=== PATIENT | male | born 1965 | race Two or more races ===

== ENCOUNTER 2019-08-31 02:55 | Emergency (ER) | payer OTHER ==
[~2019-08-31] VITALS: Ht 182.9 cm; Wt 79.4 kg
[2019-08-31] MEDS ORDERED: ORPHENADRINE C100 MG PO (04:43)
[2019-08-31] MEDS ORDERED: KETO10TA2 PO (04:43)
== END 2019-08-31 05:18 | disposition home or self-care (01) ==
LOC: ER 02:55 → EDSEX 02:57 → ER 05:18
DX: M25.512 Pain in left shoulder (principal)

== ENCOUNTER 2019-11-11 17:21 | Emergency (ER) | payer OTHER | END 2019-11-11 19:36 | disposition home or self-care (01) | LOC: ER 17:21 | DX: S81.821A Laceration with foreign body, right lower leg, initial encounter (principal); T79.4XXA Traumatic shock, initial encounter; V23.4XXA Motorcycle driver injured in collision with car, pick-up truck or van in traffic accident, initial encounter; Y93.89 Activity, other specified; Y92.413 State road as the place of occurrence of the external cause; Y99.8 Other external cause status ==

== ENCOUNTER 2019-11-18 09:51 | Emergency (ER) | payer OTHER ==
[~2019-11-18] VITALS: Ht 180.3 cm; Wt 81.6 kg
[~2019-11-18 09:51] MED LIST: KETO10TA2 PO; ORPHENADRINE C100 MG PO
== END 2019-11-18 14:41 | disposition home or self-care (01) ==
LOC: ER 09:51
DX: Z48.02 Encounter for removal of sutures (principal); Z48.00 Encounter for change or removal of nonsurgical wound dressing

== ENCOUNTER 2019-11-20 09:47 | Emergency (ER) | payer OTHER ==
[~2019-11-20] VITALS: Ht 180.3 cm; Wt 81.6 kg
[2019-11-20] MEDS ORDERED: KETO10TA2 PO (10:21)
[2019-11-20] MEDS ORDERED: AMOX1TAB5 PO (10:21)
[2019-11-20] MEDS ORDERED: HIBICLENS118 ML TOP (10:21)
[2019-11-20] MEDS ORDERED: ACETAMINOPHEN500 M1 PO (10:27)
== END 2019-11-20 10:43 | disposition home or self-care (01) ==
LOC: ER 09:47
DX: L03.115 Cellulitis of right lower limb (principal); S81.02 Laceration with foreign body of knee; V23.4XXS Motorcycle driver injured in collision with car, pick-up truck or van in traffic accident, sequela

== ENCOUNTER 2020-03-09 08:10 | Emergency (ER) | payer OTHER ==
[~2020-03-09] VITALS: Ht 180.3 cm; Wt 81.6 kg
[~2020-03-09 08:10] MED LIST changes: +ACETAMINOPHEN500 M1 PO; +AMOX1TAB5 PO; +HIBICLENS118 ML TOP
== END 2020-03-09 10:11 | disposition home or self-care (01) ==
LOC: ER 08:10
DX: H01.001 Unspecified blepharitis right upper eyelid (principal)

== ENCOUNTER 2021-05-15 15:58 | Emergency (ER) | payer OTHER ==
[~2021-05-15] VITALS: Ht 180.3 cm; Wt 81.6 kg
== END 2021-05-15 17:45 | disposition home or self-care (01) ==
LOC: ER 15:58
DX: S51.821A Laceration with foreign body of right forearm, initial encounter (principal); W60.XXXA Contact with nonvenomous plant thorns and spines and sharp leaves, initial encounter; Y92.832 Beach as the place of occurrence of the external cause

== ENCOUNTER 2021-05-23 19:16 | Emergency (ER) | payer OTHER ==
[~2021-05-23] VITALS: Ht 180.3 cm; Wt 86.2 kg
== END 2021-05-23 20:17 | disposition home or self-care (01) ==
LOC: ER 19:16
DX: Z48.02 Encounter for removal of sutures (principal)

== ENCOUNTER 2021-07-16 13:18 | Outpatient (CLI) | payer OTHER | END 2021-07-16 13:32 | disposition home or self-care (01) | LOC: MRI 13:18 | PROVIDERS: ATTEND General Practice | DX: M25.562 Pain in left knee (principal) | CPT/HCPCS: 73721 ==

== ENCOUNTER 2021-09-18 16:31 | Outpatient (CLI) | payer OTHER | END 2021-09-18 16:37 | disposition home or self-care (01) | LOC: RAD 16:31 | PROVIDERS: ATTEND Orthopaedic Surgery | DX: M25.551 Pain in right hip (principal); M25.552 Pain in left hip; M25.561 Pain in right knee; M25.562 Pain in left knee ==

== ENCOUNTER 2023-08-11 09:35 | Outpatient (CLI) | payer OTHER | END 2023-08-11 09:44 | disposition home or self-care (01) | LOC: RAD 09:35 | PROVIDERS: ATTEND General Practice | DX: M25.551 Pain in right hip (principal); M25.552 Pain in left hip ==

== ENCOUNTER 2023-08-19 12:04 | Outpatient (CLI) | payer OTHER | END 2023-08-19 12:20 | disposition home or self-care (01) | LOC: TOM 12:04 | PROVIDERS: ATTEND Orthopaedic Surgery | DX: M16.11 Unilateral primary osteoarthritis, right hip (principal) ==

== ENCOUNTER 2023-08-23 07:55 | Outpatient (CLI) | payer OTHER ==
[2023-08-23 09:33] LABS: PH,URINE 5.5 (5.0-8.0); URINE APPEARANCE Clear; URINE BILIRRUBIN Negative (NEGATIVE); URINE BLOOD Negative; URINE COLOR Yellow; URINE GLUCOSE Negative (NEGATIVE); URINE LEUKOCYTE Negative; URINE NITRATE Negative; URINE PROTEIN Negative (NEGATIVE); URINE UROBILINOGEN 0.2 E.U./dl
[2023-08-23 09:35] LABS: HEMATOCRIT 44.9 % (39.0-48.0); HEMOGLOBIN 15.2 g/dL (13-16.00); MEAN CELL VOLUME 88.6 fL (80.0-100.00); MEAN CORPUSCULAR HGB CONC 33.9 g/dl (32.0-36.0); PLATELET COUNT 258 K/uL (150-450); RED BLOOD COUNT 5.06 M/uL (4.00-6.00); RED CELL DISTRIBUTION WIDTH 14.7 % (11.5-14.5)
[2023-08-23 09:38] LABS: URINE BACTERIA 12.5 uL (0.0-1933); URINE EPITHELIAL CELLS 1.8 uL (0.0-38.8); URINE WBC 6.4 uL (0.0-23.2)
[2023-08-23 09:50] LABS: URINE RBC 0.8 uL (0.0-20.8)
[2023-08-23 10:09] LABS: COL EPI 145 SECONDS (82-175)
[2023-08-23 10:23] LABS: INR 0.94; PROTHROMBIN TIME 9.9 SECONDS (9.0-11.5)
[2023-08-23 10:32] LABS: ALBUMIN 4.2 gm/dL (3.4-5.0); BILIRUBIN TOTAL 0.34 mg/dL (0.3-1.2); CREATININE SERUM 1.05 mg/dL (0.70-1.30); GFR 72.54; GLOBULINA 3.9 G/DL (2.4-3.5); POTASSIUM 5.36 mEq/L (3.5-5.1); TOTAL PROTEIN 8.1 gm/dL (6.4-8.2)
== END 2023-08-23 07:57 | disposition home or self-care (01) ==
LOC: LAB 07:55
PROVIDERS: ATTEND Orthopaedic Surgery
DX: D64.9 Anemia, unspecified (principal); E88.89 Other specified metabolic disorders; D68.8 Other specified coagulation defects; N39.0 Urinary tract infection, site not specified; Z22.322 Carrier or suspected carrier of Methicillin resistant Staphylococcus aureus; E11.9 Type 2 diabetes mellitus without complications; I10 Essential (primary) hypertension; Z76.89 Persons encountering health services in other specified circumstances

== ENCOUNTER 2024-12-19 12:53 | Outpatient (CLI) | payer OTHER | END 2024-12-19 13:03 | disposition home or self-care (01) | LOC: RAD 12:53 | PROVIDERS: ATTEND Orthopaedic Surgery | DX: M25.511 Pain in right shoulder (principal); M25.551 Pain in right hip; M54.50 Low back pain, unspecified; M25.552 Pain in left hip ==